=== PATIENT | female | born 1980 | race Hispanic/Latino ===

== ENCOUNTER 2024-02-08 17:13 | Emergency (ER) | payer SELFPAY ==
[2024-02-08] MEDS ORDERED: Ibuprofen 200 MG TAB ONE (18:20)
== END 2024-02-08 19:39 | disposition home or self-care (01) ==
LOC: NAV ERS 17:13
DX: S39.012A Strain of muscle, fascia and tendon of lower back, initial encounter (principal); S46.911A Strain of unspecified muscle, fascia and tendon at shoulder and upper arm level, right arm, initial encounter; M79.671 Pain in right foot; I10 Essential (primary) hypertension; Z79.899 Other long term (current) drug therapy; V49.69XA Unspecified car occupant injured in collision with other motor vehicles in traffic accident, initial encounter
CPT/HCPCS: 72128; 72131; 72170